=== PATIENT | female | born 1980 | race Two or more races ===

== ENCOUNTER 2025-03-06 09:07 | Outpatient (REF) | payer MEDICAID, SELFPAY ==
--- OUTSIDE RECORDS SUMMARY | 2025-03-06 09:36 | XMS_ITS | Clinical Summary ---
Author Organization [employer] Address [address] [place] [address] 7 [place] [address] Care Team Providers Care Medical Assistant Name Role Phone Manuela Pike BYRON Primary Care Provider [phone] Allergies Active Allergy Reactions Criticality Noted Date Comments Amoxicillin 02/09/2025 Morphine 02/09/2025 Penicillins 02/09/2025 Medications * This document contains information received from the source organization and may not represent a complete record from that organization. lamoTRIgine (LaMICtal) 100 MG tabletIndications :Bipolar 2 disorder (CMS/HCC) (HCC) Take 1 tablet (100 mg) by mouth Once per day. 30 tablet 02/10/20 25 Active lamoTRIgine (LaMICtal) 25 MG tabletIndications :Bipolar 2 disorder (CMS/HCC) (HCC) Take 1 tablet (25 mg) by mouth Once per day. 30 tablet 02/10/20 25 Active lamoTRIgine (LaMICtal) 150 MG tabletIndications :Bipolar 2 disorder (CMS/HCC) (HCC) Take 1 tablet (150 mg) by mouth at bedtime. 30 tablet 02/10/20 25 026 Active cloNIDine (Catapres) 0.1 MG tabletIndications :Bipolar 2 disorder (CMS/HCC) (HCC) Take 1 tablet (0.1 mg) by mouth at bedtime. 30 tablet 02/10/20 25 Active gabapentin (Neurontin) 100 MG capsuleIndication s:Bipolar 2 disorder (CMS/HCC) (HCC) One to two capsules by mouth at bed time 60 capsule 02/10/20 25 Active amphetamine-dextr oamphetamine XR (Adderall XR) 10 MG 24 hr capsuleIndication s:Attention deficit hyperactivity disorder (ADHD), unspecified ADHD type Take 1 capsule (10 mg) by mouth Once per day. Do not crush or chew. 30 capsule 02/10/20 Active naproxen (Naprosyn) 500 MG tablet Take 500 mg by mouth every 12 (twelve) hours if needed. 07/20/19 Active cloNIDine (Catapres) 0.1 MG tablet Take 0.1 mg by mouth at bedtime. 12/04/19 025 Discontinued(R eorder (will not trigger notification to Pharmacy)) gabapentin (Neurontin) 100 MG capsule TAKE 1 TO 2 CAPSULES BY MOUTH AT BEDTIME 12/02/19 Discontinued(R eorder (will not trigger notification to Pharmacy)) lamoTRIgine (LaMICtal) 100 MG tablet TAKE 1 TABLET BY MOUTH TWICE A DAY WITH 25 MG TABLETS 12/02/19 Discontinued(R eorder (will not trigger notification to Pharmacy)) lamoTRIgine (LaMICtal) 25 MG tablet TAKE 1 TABLET BY MOUTH EVERY MORNING & TAKE 2 TABLETS EVERY EVENING DIRECTED 12/02/19 Discontinued(R eorder (will not trigger notification to Pharmacy)) erythromycin (Romycin) 5 MG/GM ophthalmic ointmentIndicatio ns:Conjunctivitis of right eye, unspecified conjunctivitis type Apply to right eye 4 times daily for 7 days. Apply Amount per Dose: 0.5 inch (~1 cm) per dose. 3.5 g 02/10/20 atomoxetine (Strattera) 60 MG capsule Take 60 mg by mouth in the morning. 09/19/19 025 Discontinued(S amado effects) lisdexamfetamine (Vyvanse) 30 MG capsule Take 30 mg by mouth in the morning. 05/22/20 Discontinued Active Problems Problem Noted Date Diagnosed Date Arthropathy of cervical spine 02/24/2025 Overview (02/24/2025): This was diagnosed in 2022 I think. When I don't do PT I experience neuropathy in both arms including tingling, reduced strength, trembling, numbness Assessment & Plan (02/24/2025 12:13 PM EDT): Plan to refer to PT Advised conservative treatment with heat ice, rest. She has ergonomically designed work station at home. She plans to attend acupuncture clinic Orders: Referral to Physical Therapy; Future Abdominal migraine 02/24/2025 Overview (02/24/2025): First notes age 6 not diagnosed till 2016. Best treated with acupuncture, diet etc Assessment & Plan (02/24/2025 12:13 PM EDT): Stable at this time Pt does suffer from chronic constipation regulated with miralax. Advised pt if she is not having daily BM she can increase to miralax BID she declines colace rx Neuropathy 02/24/2025 Overview (02/24/2025): Noticed in 2020, diagnosed as result of arthritis in 2021 by neurologist in [place] Severe major depression with out psychotic features (CMS/FORMERLY [facility]) 02/17/2025 Assessment & Plan (02/18/2025 4:53 PM EDT): During IBH Consult Kayla presenting with depressed mood, Tearful, crying spells , hopelessness, irritable mood, loss of interests/pleasure , sense of isolation/loneliness , isolating, changes in sleep difficulty falling asleep and difficulty staying asleep , psychomotor retardation, fatigue/loss of energy, inappropriate/excessive guilt , difficulty concentrating, indecisiveness and Abnormally elevated mood, Decreased need for sleep, Excessive goal directed activity, and Changes in self-image; for a period of 18+ mo, for most or all symptoms in the context of untreated chronic mental health condition. Pt carries a diagnosis of Bipolar disorder per her medical chart and presented with the sxs described above that reassures patient struggles with said mental health challenges. Kayla possess the insight and is able to identify triggers and coping strategies that currently work for her. She receives positive support from her community and is able and willing to reach out when feeling unsafe. Pt will be referred for medication management (Danica) and OP therapy services. Elevated blood pressure reading 02/09/2025 Assessment & Plan (02/09/2025 2:47 PM EDT): Patient reports blood pressure is high due to her appointment today, she reports she is a little nervous, I advised low-sodium diet and follow-up with PCP Vulvar cyst 01/31/2012 Attention deficit hyperactivity disorder (ADHD) 09/12/2010 Assessment & Plan (02/24/2025 12:13 PM EDT): Continue on adderall, no side effects at this time, VSS Assessment & Plan (02/09/2025 2:47 PM EDT): I will do month of refill, referral to N done today Bipolar II disorder ([facility]) 08/12/2010 Assessment & Plan (02/18/2025 4:53 PM EDT): During IBH Consult Kayla presenting with depressed mood, Tearful, crying spells , hopelessness, irritable mood, loss of interests/pleasure , sense of isolation/loneliness , isolating, changes in sleep difficulty falling asleep and difficulty staying asleep , psychomotor retardation, fatigue/loss of energy, inappropriate/excessive guilt , difficulty concentrating, indecisiveness and Abnormally elevated mood, Decreased need for sleep, Excessive goal directed activity, and Changes in self-image; for a period of 18+ mo, for most or all symptoms in the context of untreated chronic mental health condition. Pt carries a diagnosis of Bipolar disorder per her medical chart and presented with the sxs described above that reassures patient struggles with said mental health challenges. Kayla possess the insight and is able to identify triggers and coping strategies that currently work for her. She receives positive support from her community and is able and willing to reach out when feeling unsafe. Pt will be referred for medication management (Danica) and OP therapy services. Assessment & Plan (02/09/2025 2:47 PM EDT): I will do month of refill, referral to N done today Dyslexia 08/12/2010 Irritable bowel syndrome, unspecified 08/12/2010 Lactose intolerance 08/12/2010 Resolved Problems Problem Noted Date Diagnosed Date Resolved Date Conjunctivitis 02/09/2025 02/24/2025 Encounters * This document contains information received from the source organization and may not represent a complete record from that organization. Date Type Department Care Team Description 03/06/2025 Travel 02/24/2025 10:30 AM EDT Office Visit [facility] [address] [place] [address] Manuela Pike CNP Encounter for physical examination (Primary Dx); Bipolar 2 disorder (CMS/HCC); Attention deficit hyperactivity disorder (ADHD), unspecified ADHD type; Encounter for screening mammogram for breast cancer; Arthropathy of cervical spine; Abdominal migraine, not intractable; Bilateral carpal tunnel syndrome; Cervical radiculopathy; Accommodative insufficiency; Convergence insufficiency 02/24/[address] [address] Manuela Pike CNP Appointment 02/24/2025 Travel 02/23/2025 Travel 02/17/2025 Patient Outreach [address] [address] Isaiah Richey MD Pre-visit Planning (SDOH screening negative and Tobacco screening negative) 02/13/2025 Travel 02/09/2025 2:00 PM EDT Office Visit [facility] [address] [place] [id number] Rere Pacheco MD Elevated blood pressure reading (Primary Dx); Bipolar 2 disorder (CMS/HCC); Attention deficit hyperactivity disorder (ADHD), unspecified ADHD type; Conjunctivitis of right eye, unspecified conjunctivitis type 02/09/2025 Travel 02/04/2025 Telephone [facility] [address] [place] [address] Silvana Bird MA chart prep from Last 3 Months Social History Tobacco Use Types Packs/Day Years Used Date Smoking Tobacco: Never Assessed Depression Answer Date Recorded Patient Health Questionnaire-9 Score 14 02/18/2025 Patient Health Questionnaire-9 Score 14 02/18/2025 Last PHQ-9: Questionnaire Data Not on file 0 02/18/2025 Housing Stability Answer Date Recorded What is your housing situation today? I have pal sing 02/17/[address] you li ve. Do you have problems with any of the following? None of the above 02/17/2025 Food Insecurity Answer Date Recorded Within the past 12 months, y ou worried that your food would run out before you got money to buy more: Never True 02/17/2025 Within the past 12 months,th e food you bought just didn't last and you didn't have enough money to get more: Never True Transportation Answer Date Recorded In the past 12 months, has l ack of transportation kept you from medical appts, meetings, work or from getting things needed for daily living? No 02/17/2025 Utilities Answer Date Recorded In the past 12 months, has t he electric, gas, oil or water company threatened to shut off services in your home? No 02/17/2025 Depression Answer Date Recorded Patient Health Questionnaire-2 Score 6 02/18/2025 Internet Access Answer Date Recorded Internet Access Q1 Yes 02/17/2025 Internet Access Q2 Not on file 02/17/2025 Comments Unknown Sex and Gender Information Value Date Recorded Sex Assigned at Female 08/19/2024 2:47 PM EDT Legal Sex Female 2:46 PM EDT Gender Identity Female 08/19/2024 2:47 PM EDT Sexual Orientation Choose not to disclose 2024 2:47 PM EDT Last Filed Vital Signs Vital Sign Reading Time Taken Comments Blood Pressure 132/88 02/24/2025 10:30 AM EDT Pulse 70 02/24/2025 10:30 AM EDT Temperature 36.3 C (97.3 F) 02/24/2025 10:30 AM EDT Respiratory Rate 16 02/24/2025 10:30 AM EDT Oxygen Saturation 100% 02/24/2025 10:30 AM EDT Inhaled Oxygen Concentration - - Weight 73 kg (161 lb) 02/24/2025 10:30 AM EDT Height 176.5 cm (5' 9.5 ) 02/24/2025 10:30 AM ED T Body Mass Index 23.43 02/24/2025 10:30 AM EDT Plan of Treatment Upcoming Encounters Date Type Department Care Team (Late st Contact Info) Description 04/24/2025 9:00 AM EST Office Visit [facility] [address] [place] [address] Manuela Pike, BYRON [address] [place] [address] Health Maintenance Due Date Last Done Comments HIV Screening 1982 Tobacco Screening 1994 Family Planning (PISQ) 1997 HPV Vaccines (1 - 3-dose series) 1997 Hepatitis C Screening 2000 Hepatitis B Vaccines (1 of 3 - 19+ 3-dose series) 2001 Pap Smear 11/06/2003 Cervical Cancer Screening 2012 HPV/Cotest 2012 DTaP/Tdap/Td Vaccines (2 - T d or Tdap) 09/18/2022 09/18/2012 Mammogram 2022 COVID-19 Vaccine ( - 2023-2 5 season) 2025 Influenza Vaccine (#1) 2025 04/17/2011 Depression Monitoring 08/18/2025 02/18/2025 , 02/18/2025 SDOH Screening 02/17/2026 02/17/2025 Disability Screening 02/23/2026 02/23/2025 Alcohol/Substance Use Screening 02/24/2026 02/24/2025 Zoster Vaccines (1 of 2) 2032 RSV Patients and Patients Aged 60 years or older (1 - 1-dose 75+ series) 2057 HIB Vaccines Aged Out No longer eligi ble based on patient's age to complete this topic Hepatitis A Vaccines Aged Out No long er eligible based on patient's age to complete this topic IPV Vaccines Aged Out No longer eligi ble based on patient's age to complete this topic Meningococcal B Vaccine Aged Out No l onger eligible based on patient's age to complete this topic Meningococcal Vaccine Aged Out No dedra porfirio eligible based on patient's age to complete this topic Pneumococcal Vaccine: Pediatrics (0 to 5 Years) and At-Risk Patients (6 to 49) Years Aged Out No longer eligible b ased on patient's age to complete this topic RSV under 20 months Aged Out No longe r eligible based on patient's age to complete this topic Rotavirus Vaccines Aged Out No longer eligible based on patient's age to complete this topic Insurance [facility] MEDICAID STAND ADULT Care Teams Medical Assistant Relationship Specialty Start Date End Date Manuela Pike CNP [address] [place] [id number] PCP - General Family Medicine 02/24/25
--- OUTSIDE RECORDS SUMMARY | 2025-03-06 09:36 | XMS_ITS | Encounter Summary ---
Author Organization [employer] Address [address] [facility] [facility] [address] [place] [address] Care Team Providers Care Mingle Operator Name Role Phone Manuela Pike BYRON Primary Care Provider [phone] Encounter Details Date Type Department Care Team (Latest Contact Info) Description 03/06/2025 Travel Social History Tobacco Use Types Packs/Day Years Used Date Smoking Tobacco: Never Assessed Depression Answer Date Recorded Patient Health Questionnaire-9 Score 14 02/18/2025 Patient Health Questionnaire-9 Score 14 02/18/2025 Last PHQ-9: Questionnaire Data Not on file 0 02/18/2025 Housing Stability Answer Date Recorded What is your housing situation today? I have pal lovell 02/17/[address] you li [...] not to disclose 2024 2:47 PM EDT documented as of this encounter Plan of Treatment Upcoming Encounters Date Type Department Care Team (Late st Contact Info) Description 04/24/2025 9:00 AM EST Office Visit [facility] [address] [place] [address] Manuela Pike CNP [address] [place] [address] documented as of this encounter Visit Diagnoses Not on filedocumented in this encounter Additional Health Concerns Assessment Noted Time PHQ-9 Depression Total Score: 14 025 9:57 AM EDT documented as of this encounter Care Teams Mingle Operator Relationship Specialty Start Date End Date Manuela Pike CNP [address] [place] [address] PCP - General Family Medicine 02/24/25 documented as of this encounter
--- OUTSIDE RECORDS SUMMARY | 2025-03-06 09:36 | XMS_ITS | Clinical Summary ---
Author Organization [facility] Address [address] [place] [address] Care Team Providers Care Thermometer Production Worker Name Role Phone Unavailable Primary Care Provider Unavailabl e Source Comments PLEASE NOTE, if this patient is a minor, it may be UNLAWFUL to discuss sensitive information that is contained in these records (such as FAMILY PLANNING, MENTAL HEALTH or SUBSTANCE ABUSE) with the minor patient's parent or other person without the patient's specific authorization.[facility] Social History Tobacco Use Types Packs/Day Years Used Date Smoking Tobacco: Never Assessed Comments Unknown Sex and Gender Information Value Date Recorded Sex Assigned at Female 02/20/2025 9:19 AM PDT Legal Sex Female 9:19 AM PDT Gender Identity Female 02/20/2025 9:19 AM PDT Sexual Orientation Not on file Plan of Treatment Upcoming Encounters Date Type Department Care Team (Late st Contact Info) Description 03/24/2025 11:30 AM EDT Behavioral Health Visit [facility] [address] [place] [address] Ashly Linn APRN [address] [place] [address] Health Maintenance Due Date Last Done Comments Anxiety Screening 1982 Diabetes Screening 1982 HPV Screening 1982 Hepatitis C Screening 1982 Lipid Screening 1982 Pap + HPV 1982 Tobacco Screening 1982 HIV Screening 1997 Relationship Safety Screening/Counseling 1997 Hypertension Screening (#1) 2000 Imm-DTaP/Tdap/Td (1 - Tdap) 2001 Imm-Hepatitis B (1 of 3 - 19+ 3-dose series) 2 Cervical Cancer Screening 11/06/2003 Pap Smear 11/06/2003 Imm-HPV (1 - 3-dose SCDM series) 2009 Breast Cancer Screening (Mammogram) 2022 Alcohol and Drug Screen 06/04/2024 Depression Annual Screen 06/04/2024 [id number] (2023- season) 2025 Imm-Influenza (#1) 2025 Cervical Ablation/Cold-Knife Conization Discontinued Cervical Cryotherapy Discontinued Colposcopy Discontinued Endometrial Biopsy Discontinued Excision/Leep Discontinued HPV Genotyping Discontinued Vaginal Pap Discontinued Vulvoscopy Discontinued Insurance [facility]
[2025-03-06 14:13] LABS: MANUAL DIFF FLAG NO
[2025-03-06 14:30] LABS: Hematocrit 39.0 % (37.0-47.0); Hemoglobin 12.8 g/dl (12.0-16.0); Imm Gran Abs Auto 0.02 X10*3/uL (0.00-0.03); Imm Gran Pct Auto 0.3 % (0.0-0.4); Lymphocytes Absolute Auto 1.8 X10*3/uL (1.2-4.9); Mean Corpuscular HGB Conc 32.8 g/dl (31.0-35.0); Mean Corpuscular Hemoglobin 31.1 pg (27.0-33.0); Mean Corpuscular Volume 94.9 fL (80.0-98.0); NRBC Abs Auto 0.000 X10*3/uL (0.0-0.012); NRBC Pct Auto 0.0 /100WBC (0.0-0.2); Platelet Count 299 X10*3/uL (160-400); Red Blood Count 4.11 X10*6/uL (4.20-5.50); White Blood Count 5.7 X10*3/uL (4.8-10.8)
[2025-03-06 15:01] LABS: Alanine Aminotransferase 13 U/L (0-31); Albumin Level 4.3 g/dL (3.5-5.0); Alkaline Phosphatase 62 U/L (39-117); Anion Gap 10 (12-20); Aspartate Amino Transferase 25 U/L (5-31); Blood Urea Nitrogen 14 mg/dL (9-16); Calcium 9.2 mg/dL (8.4-10.2); Carbon Dioxide 27 mmol/L (22-29); Chloride 102 mmol/L (96-108); Cholesterol 206 mg/dL (<200); Estimated Glomerular Filt Rate > 60; HDL Cholesterol 55 mg/dL (>40); Potassium 4.6 mmol/L (3.3-5.1); Sodium 134 mmol/L (135-145); Total Protein 7.1 g/dL (6.5-8.0); Triglycerides 65 mg/dL (<150)
[2025-03-07 04:23] LABS: HBS Num1 134.84 mIU/mL (0-7.99); HBc Num1 0.09 S/CO (0.00-0.79); HBsAGNum1 0.30 S/CO (0.00-0.99); HIV Num 1 0.06 S/CO (0.00-0.99); Hepatitis B Surface Antigen Negative (Negative); ~HepC Num1 0.08 S/CO (0.00-0.79); ~Hepatitis B Surface Antibody REACTIVE (Nonreactive); ~Hepatitis C Antibody Nonreactive (Nonreactive)
== END 2025-03-06 09:08 | disposition home or self-care (01) ==
LOC: HO.CHCLDS 09:07
DX: Z00.00 Encounter for general adult medical examination without abnormal findings (principal); Z11.59 Encounter for screening for other viral diseases; Z11.4 Encounter for screening for human immunodeficiency virus [HIV]
CPT/HCPCS: 36415; 80053; 80061; 83036; 84443; 85025; 86704; 86706; 86803; 87340; 87389

== ENCOUNTER 2025-04-02 08:57 | Outpatient (REF) | payer MEDICAID, SELFPAY ==
--- NOTE | 2025-04-02 | EMG_ITS ---
Chief complaint:?G56.03 Carpal tunnel syndrome, bilateral Reason for referral: Numbness, tingling and weakness Referred by:Carmel Pike Procedure done: bilateral upper extremities NCS/EMG Bilateral median and ulnar motor studies were performed. Bilateral median and ulnar mixed sensory study, bilateral radial sensory and bilateral median and lateral antecubital brachial sensory studies were performed and EMG needle examination was performed. Findings: No abnormalities were noted. Impression: This is an unremarkable study with no evidence of median or ulnar neuropathy or a proximal lesion. [place] [id number] 2 extremities MTDD
--- OUTSIDE RECORDS SUMMARY | 2025-04-02 09:59 | XMS_ITS | Clinical Summary ---
Author Organization [facility] Address [address] [place] [address] Care Team Providers Care Gear Machine Operator Name Role Phone Unavailable Primary Care Provider Unavailabl e Source Comments PLEASE NOTE, if this patient is a minor, it may be UNLAWFUL to discuss sensitive information that is contained in these records (such as FAMILY PLANNING, MENTAL HEALTH or SUBSTANCE ABUSE) with the minor patient's parent or other person without the patient's specific authorization.[facility] Allergies Active Allergy Reactions Criticality Noted Date Comments Morphine Anxiety,Itching,Othe r (See Comments),Rash Low 08/12/2010 Itch, nausea Penicillins Hives Medium 10/12/2011 Medications dextroamphetami ne-amphetamine (ADDERALL) 5 mg tablet Take 7.5 mg by mouth. 2 Active dextroamphetami ne-amphetamine (ADDERALL XR) 10 mg 24 hr capsule Take 10 mg by mouth daily. 5 Active cloNIDine (CATAPRES) 0.1 mg tablet Take 0.1 mg by mouth nightly at bedtime. Active gabapentin (NEURONTIN) 100 mg capsule Take 100 mg by mouth nightly at bedtime. 3 Active lamoTRIgine (LAMICTAL) 150 mg tablet Take 150 mg by mouth 2 (two) times daily. 5 02/10/20 26 Active naproxen (NAPROSYN) 500 mg tablet Take 500 mg by mouth 2 (two) times daily. 3 Active venlafaxine XR (EFFEXOR XR) 37.5 mg 24 hr capsule Take 1 Capsule by mouth once daily with breakfast for 16 days. 16 Capsule 5 04/09/20 25 Active Active Problems Problem Noted Date Diagnosed Date Arthritis 03/24/2025 Overview (03/24/2025): C5-C6 diagnosed back in 2020 Neuropathic pain 03/24/2025 Overview (03/24/2025): tingling, numbness, weakened operator receptionist and trembling in both hands/arms from stenosis in neck Abdominal migraine 02/24/2025 Overview (03/24/2025): First notes age 6 not diagnosed till 2016. Best treated with acupuncture, diet etc Arthropathy of cervical spine 02/24/2025 Overview (03/24/2025): This was diagnosed in 2022 I think. 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 She reports the medication is making a difference but experiences evening crash and exhaustion. Previous trials of Vyvanse caused amplified anxiety and Strattera caused 40-pound weight gain. She inquired about viloxazine but expressed anxiety about trying another SNRI after Strattera experience. Plan: - Continue current Adderall regimen (10 mg XR morning, 7.5 mg short-release afternoon) Bipolar II disorder 08/12/2010 Assessment & Plan (03/26/2025 5:20 PM EDT): Bipolar type 2 disorder with depression Assessment: Patient has bipolar type 2 disorder diagnosed in 2002, currently experiencing worsening seasonal depression with suicidal ideation despite being on maximum lamotrigine dose of 300 mg daily (150 mg twice daily, increased from 275 mg in February). She reports exhaustion by end of day, not getting out of bed on Saturdays, and concentration difficulties. Previous trial of Effexor in 2007 caused hypomanic episode, but now that she is on lamotrigine mood stabilizer, venlafaxine may be worth retrying as it has better evidence for supporting depressive phase of bipolar without causing diana. Abilify was considered for augmentation but ruled out due to anxiety and concurrent Adderall use making it too activating. Plan: - Start venlafaxine 37.5 mg daily for 2 weeks, then increase to therapeutic dose of 75 mg - Patient expressed willingness to try but noted sensitivity to side effects and preference for slow titration - Continue lamotrigine 150 mg twice daily (current maximum dose is appropriate) - Follow-up in 2 weeks on April 07 at 10:30 AM to assess medication tolerance and adjust as needed Dyslexia 08/12/2010 Irritable bowel syndrome, unspecified 08/12/2010 Lactose intolerance 08/12/2010 History of lumbar spinal fusion 12/15/2008 Overview (03/24/2025): burst wedge fracture of L1 fused to above and below. Encounters Date Type Department Care Team Description 03/24/2025 11:30 AM EDT Behavioral Health Visit [facility] [address] [place] [address] Ashly Linn APRN from Last 3 Months Immunizations Immunization Administration Dates Next Due Flu, Cell Culture based, Pre servative Free, 6m+, Flucelvax 03/28/2018 Flu, Preservative Free 04/17/2021,05/02/2017 Hep B, Unspecified 1982 INFLUENZA, SEASONAL, INJECTABLE, PRESERVATIVE FR EE 03/06/2025 MMR (MMR II/Priorix) 11/06/1983 [facility] State Funded Flu Vaccine 04/17/2011 TDAP 09/18/2012 Social History Tobacco Use Types Packs/Day Years Used Date Smoking Tobacco: Never Assessed Comments Unknown Sex and Gender Information Value Date Recorded Sex Assigned at Female 02/20/2025 9:19 AM PDT Legal Sex Female 9:19 AM PDT Gender Identity Female 02/20/2025 9:19 AM PDT Sexual Orientation Not on file Plan of Treatment Upcoming Encounters Date Type Department Care Team (Дмитрий causey Contact Info) Description 04/07/2025 10:30 AM EST Behavioral Health Visit [facility] [address] [place] [id number] Ashly Linn, [place] [address] [facility] [place] [address] Health Maintenance Due Date Last Done Comments Anxiety Screening 1982 Depression Monitoring 1982 HPV Screening (self-collect) 1982 HPV Screening 1982 Pap + HPV 1982 Tobacco Screening 1982 Imm-Hepatitis B (2 of 3 - 3- dose series) 1982 1982 Relationship Safety Screening/Counseling 1997 Hypertension Screening (#1) 2000 Cervical Cancer Screening 11/06/2003 Pap Smear 11/06/2003 Imm-HPV (1 - 3-dose SCDM series) 2009 Imm-DTaP/Tdap/Td (2 - Td or Tdap) 09/18/2022 013 Breast Cancer Screening (Mammogram) 2022 Alcohol and Drug Screen 06/04/2024 Diabetes Screening 03/06/2028 03/06/2025, 1 , 03/06/2025 Lipid Screening 03/06/2030 03/06/2025 HIV Screening Completed 03/06/2025, 03/06/2025 Hepatitis C Screening Completed 03/06/2025 [id number] Completed 03/06/2025, 04/05, 06/03/2020 Imm-Influenza Completed 03/06/2025, 04/04, 03/28/2018, Additional history exists Cervical Ablation/Cold-Knife Conization Discontinued Cervical Cryotherapy Discontinued Colposcopy Discontinued Excision/Leep Discontinued HPV Genotyping Discontinued Vaginal Pap Discontinued Vulvoscopy Discontinued Insurance [facility] [employer]
--- OUTSIDE RECORDS SUMMARY | 2025-04-02 09:59 | XMS_ITS | Clinical Summary ---
Author Organization [facility] Address [address] [facility] 7 [place] [address] Care Team Providers Care Driver'S Education Instructor Name Role Phone Manuela Pike BYRON Primary Care Provider [phone] Allergies Active Allergy Reactions Criticality Noted Date Comments Amoxicillin 02/09/2025 Morphine 02/09/2025 Penicillins 02/09/2025 Medications * This document contains information received from the source organization and may not represent a complete record from that organization. lamoTRIgine (LaMICtal) 100 MG tabletIndications: Bipolar 2 disorder (CMS/HCC) (HCC) Take 1 tablet (100 mg) by mouth Once per day. 30 tablet 5 Active lamoTRIgine (LaMICtal) 25 MG tabletIndications: Bipolar 2 disorder (CMS/HCC) (HCC) Take 1 tablet (25 mg) by mouth Once per day. 30 tablet 5 Active lamoTRIgine (LaMICtal) 150 MG tabletIndications: Bipolar 2 disorder (CMS/HCC) (HCC) Take 1 tablet (150 mg) by mouth at bedtime. 30 tablet 5 02/10/20 26 Active cloNIDine (Catapres) 0.1 MG tabletIndications: Bipolar 2 disorder (CMS/HCC) (HCC) Take 1 tablet (0.1 mg) by mouth at bedtime. 30 tablet 5 Active gabapentin (Neurontin) 100 MG capsuleIndications :Bipolar 2 disorder (CMS/HCC) (HCC) One to two capsules by mouth at bed time 60 capsule 5 Active amphetamine-dextro amphetamine XR (Adderall XR) 10 MG 24 hr capsuleIndications :Attention deficit hyperactivity disorder (ADHD), unspecified ADHD type Take 1 capsule (10 mg) by mouth Once per day. Do not crush or chew. 30 capsule 5 Active naproxen (Naprosyn) 500 MG tablet Take 500 mg by mouth every 12 (twelve) hours if needed. 3 Active ferrous gluconate (Fergon) 324 (38 Fe) MG tabletIndications: Anemia, unspecified type Take 1 tablet (324 mg) by mouth with breakfast. 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) 02/17/2025 Assessment & Plan (02/18/2025 4:53 PM [...] will do month of refill, referral to [facility] done today Bipolar II disorder ([facility] 08/12/2010 Assessment & Plan (02/18/2025 4:53 PM [...] will do month of refill, referral to [facility] done today Dyslexia 08/12/2010 Irritable bowel syndrome, unspecified 08/12/2010 Lactose intolerance 08/12/2010 Resolved Problems Problem Noted Date Diagnosed Date Resolved Date Conjunctivitis 02/09/2025 02/24/2025 Encounters * This document contains information received from the source organization and may not represent a complete record from that organization. Date Type Department Care Team Description 03/06/2025 9:30 AM EDT Clinical Support [facility] [address] [place] [phone] Susana Aguirre RN Encounter for immunization; Encounter for vaccination 03/06/2025 Travel 02/24/2025 10:30 AM EDT Office Visit [facility] [address] [place] [address] Manuela Pike CNP Encounter for physical examination (Primary Dx); Bipolar 2 disorder (CMS/HCC); Attention deficit hyperactivity disorder (ADHD), unspecified ADHD type; Encounter for screening mammogram for breast cancer; Arthropathy of cervical spine; Abdominal migraine, not intractable; Bilateral carpal tunnel syndrome; Cervical radiculopathy; Accommodative insufficiency; Convergence insufficiency 02/24/2025 Telephone [facility] [address] [place] [phone] Manuela Pike CNP Appointment 02/24/2025 Travel 02/23/2025 Travel 02/17/2025 Patient Outreach [facility] [address] [place] [address] Isaiah Richey MD Pre-visit Planning (SDOH screening negative and Tobacco screening negative) 02/13/2025 Travel 02/09/2025 2:00 PM EDT Office Visit [facility] [address] [place] [address] Rere Pacheco MD Elevated blood pressure reading (Primary Dx); Bipolar 2 disorder (CMS/HCC); Attention deficit hyperactivity disorder (ADHD), unspecified ADHD type; Conjunctivitis of right eye, unspecified conjunctivitis type 02/09/2025 Travel 02/04/2025 Telephone [facility] [address] [place] [address] Silvana Bird MA chart prep from Last 3 Months Immunizations Immunization Administration Dates Next Due Influenza, seasonal, injectable, preservative fr ee 03/06/2025 Pfizer Covid-19 Vaccine 12+ 03/06/2025 Social History Tobacco Use Types Packs/Day Years [...] Description 04/24/2025 9:00 AM EST Office Visit [facility] [address] [place] [address] [place], [facility] [address] [place] [address] Health Maintenance Due Date Last Done Comments Tobacco Screening 1994 Family Planning (PISQ) 1997 HPV Vaccines (1 - 3-dose series) 1997 Hepatitis B Vaccines (1 of 3 - 19+ 3-dose series) 2001 Pap Smear 11/06/2003 Cervical Cancer Screening 2012 HPV/Cotest 2012 DTaP/Tdap/Td Vaccines (2 - T d or Tdap) 09/18/2022 09/18/2012 Mammogram 2022 Depression Monitoring 08/18/2025 02/18/2025 , 02/18/2025 SDOH Screening 02/17/2026 02/17/2025 Disability Screening 02/23/2026 02/23/2025 Alcohol/Substance Use Screening 02/24/2026 02/24/2025 Zoster Vaccines (1 of 2) 2032 RSV Patients and Patients Aged 60 years or older (1 - 1-dose 75+ series) 2057 COVID-19 Vaccine Completed 03/06/2025 HIV Screening Completed 03/06/2025 Hepatitis C Screening Completed 03/06/2025 Influenza Vaccine Completed 03/06/2025, 04/17/2011 HIB Vaccines Aged Out No longer eligi [...] on patient's age to complete this topic Procedures Procedure Name Priority Date/Time Associated Diagnosis Comments HEMOGLOBIN A1C Routine 03/06/2025 9:11 AM EDT Encounter for physical examination LIPID PANEL, STANDARD Routine 03/06/2025 9:11 AM EDT Encounter for physical examination TSH W/REFLEX TO FT4 Routine 03/06/2025 9 :11 AM EDT Encounter for physical examination COMPREHENSIVE METABOLIC PANEL Routine 03/06/2025 9:11 AM EDT Encounter for physical examination CBC WITH AUTO DIFFERENTIAL Routine 03/06/2025 9:11 AM EDT Encounter for physical examination HEPATITIS B SURFACE ANTIGEN, EIA Routine 03/06/2025 9:11 AM EDT Encounter for physical examination HEPATITIS B CORE AB TOTAL Routine 03/06/2025 9:11 AM EDT Encounter for physical examination HEPATITIS B SURFACE ANTIBODY, QUALITATIVE Routine 03/06/2025 9:11 AM EDT Encounter for physical examination HEPATITIS C AB W/REFL TO HCV RNA, QN, PCR Routine 03/06/2025 9:11 AM EDT Encounter for physical examination HIV 1/2 ANTIGEN/ANTIBODY, FOURTH GENERATION W/RFL Routine 03/06/2025 9:11 AM EDT Encounter for physical examination from Last 3 Months Results * TSH W/Reflex to FT4 (03/06/2025 9:11 AM EDT) TSH reflex Free T4 1.27 0.32 - 4.0 uIU/mL [facility] Blood Venous blood specimen / Unknown 03/06/2025 9:11 AM EDT 03/06/2025 2:14 PM EDT [facility] LAB BLOOD ORDERABLES Flores l Result [facility] [address] [place] [phone] * (ABNORMAL) CBC auto differential (03/06/2025 9:11 AM EDT) White Blood Count 5.7 4.8 - 10.8 X10*3/uL [facility] Red Blood Count 4.11(L) 4.20 - 5.50 X10*6/uL [facility] Hemoglobin 12.8 12.0 - 16.0 g/dl [facility] Hematocrit 39.0 37.0 - 47.0 % [facility] Mean Corpuscular Volume 94.9 80.0 - 98.0 fL [facility] Mean Corpuscular Hemoglobin 31.1 27.0 - 33.0 pg [facility] Mean Corpuscular HGB Conc 32.8 31.0 - 35.0 g/dl [facility] Red Cell Distribution Width 13.7 11.0 - 16.0 % [facility] Platelet Count 299 160 - 400 X10*3/uL [facility] Mean Platelet Volume 10.9 9.4 - 12.3 fL [facility] Neutrophils Percent Auto 59.5 45 - 73 % [facility] Imm Gran Pct Auto 0.3 0.0 - 0.4 % [facility] Lymphocytes Percent Auto 30.8 20 - 40 % [facility] Monocytes Percent Auto 8.5 2 - 11 % [facility] Eosinophils Percent Auto 0.7 0 - 4 % [facility] Basophils Percent Auto 0.2 0 - 2 % [facility] NRBC Pct Auto 0.0 0.0 - 0.2 /100WBC [facility] Neutrophils Absolute Auto 3.4 2.0 - 8.3 x10*3/uL [facility] Imm Gran Abs Auto 0.02 0.00 - 0.03 X10*3/uL [facility] Lymphocytes Absolute Auto 1.8 1.2 - 4.9 X10*3/uL [facility] Monocytes Absolute Auto 0.5 0.1 - 1.2 X10*3/uL [facility] Eosinophils Absolute Auto 0.0 0.0 - 0.4 X10*3/uL [facility] Basophils Absolute Auto 0.0 0.0 - 0.2 X10*3/uL [facility] NRBC Abs Auto 0.000 0.0 - 0.012 X10*3/uL [facility] Blood Venous blood specimen / Unknown 03/06/2025 9:11 AM EDT 03/06/2025 2:10 PM EDT Manuela Pike [facility] LAB BLOOD ORDERABLES Flores l Result [facility] [address] [place] [phone] * Hepatitis C Antibody with Reflex to HCV, RNA, Quantitative, Real-Time PCR (03/06/2025 9:11 AM EDT) Hepatitis C Antibody Nonreactive Nonreactive [facility] Comment:Antibodies to HCV no t detected; does not exclude early acuteHCV infection. Blood Venous blood specimen / Unknown 03/06/2025 9:11 AM EDT 03/06/2025 2:14 PM EDT [facility] LAB BLOOD ORDERABLES Flores l Result Performing Organization Address City/[facility]/ZIP Co de Phone Number [facility] [address] [place] [phone] * Hepatitis B surface antigen, EIA (03/06/2025 9:11 AM EDT) Hepatitis B Surface Ag Negative Negative [facility] Blood Venous blood specimen / Unknown 03/06/2025 9:11 AM EDT 03/06/2025 2:14 PM EDT [facility] LAB BLOOD ORDERABLES Flores l Result Performing Organization Address City/[facility]/ZIP Co de Phone Number [facility] [address] [place] [phone] * Hepatitis B Core Antibody, Total (03/06/2025 9:11 AM EDT) Hepatitis B Core Antibody Nonreactive Nonreactive [facility] Blood Venous blood specimen / Unknown 03/06/2025 9:11 AM EDT 03/06/2025 2:14 PM EDT [facility] LAB BLOOD ORDERABLES Flores l Result Performing Organization Address City/[facility]/[place] Co de Phone Number [facility] [address] [place] [phone] * HIV-1/2 Antigen and Antibodies, Fourth Generation, with Reflexes (03/06/2025 9:11 AM EDT) [facility] HIV AB/AG Nonreactive Nonreactive [facility] Comment:HIV-1 p24 Ag and/or HIV-1/HIV-2 Ab not detected.A test result that is nonreactive does not exclude thepossibility of exposure to or infection with HIV-1 and/orHIV-2. Nonreactive results in this assay for individualswith prior exposure to HIV-1 and/or HIV-2 may be due toantigen and antibody levels that are below the limit ofdetection of this assay.The Qubole HIV Ag/Ab Combo assay result andsupplemental assay results should be interpreted inconjunction with the patient's clinical presentation,history and other laboratory results. If the results areinconsistent with clinical evidence, additional testing issuggested to confirm the result. Blood Venous blood specimen / Unknown 03/06/2025 9:11 AM EDT 03/06/2025 2:14 PM EDT [facility] LAB BLOOD ORDERABLES Flores l Result Performing Organization Address City/[facility]/ZIP Co de Phone Number [facility] [address] [place] [address] [phone] * Hepatitis B Surface Antibody, Qualitative (03/06/2025 9:11 AM EDT) [facility] ~Hepatitis B Surface Antibody REACTIVE Nonreactive [facility] Comment:REACTIVE: > 11.99 mI U/mL Blood Venous blood specimen / Unknown 03/06/2025 9:11 AM EDT 03/06/2025 2:14 PM EDT [facility] LAB BLOOD ORDERABLES Flores l Result Performing Organization Address City/[facility]/ZIP Co de Phone Number [facility] [address] [place] [phone] * Hemoglobin A1c (03/06/2025 9:11 AM EDT) [facility] Hemoglobin A1c 5.2 <6.0 % [facility] Comment:Hemoglobin A1C Refer ence Range Adults: 4.8 - 6.0 % Non diabetic: < 6.0 % Goal: < 7.0 %Additional Action Suggested: > 8.0 %Note: Hemoglobin A1c results are invalid for patients with abnormal amounts of HbF. Blood transfusions may impact the HbA1c concentration in the patient sample. Estimated Average Glucose 103 mg/dL [facility] Comment:eAG = Estimated ave rage glucose which is %A1C expressed asaverage glucose, using the formula of the [id number] Glucose study (ADAG), Diabetes Care, Vol.31,#8,Jan. 2007 Blood Venous blood specimen / Unknown 03/06/2025 9:11 AM EDT 03/06/2025 2:10 PM EDT [facility] LAB BLOOD ORDERABLES Flores l Result [facility] [address] [place] [phone] * (ABNORMAL) Lipid Panel, Standard (03/06/2025 9:11 AM EDT) Triglycerides 65 <150 mg/dL [facility] Comment:Desirable Triglyceri de: less than 150 mg/dLBorderline High Triglyceride 150-199 mg/dLHigh Triglyceride: 200-499 mg/dLVery High Triglyceride: greater than or equal to 5OO mg/dL Cholesterol 206(H) <200 mg/dL [facility] Comment:Desirable Cholestero l: less than 200 mg/dLBorderline High Cholesterol: 200-239 mg/dLHigh Cholesterol: greater than 239 mg/dL LDL Cholesterol Calculated 138(H) <100 mg/dL [facility] Comment:Desirable LDL: less than 100 mg/dLNear Optimal/Above Optimal LDL: 110- 129 mg/dLBorderline High LDL: 130-159 mg/dLHigh LDL: 160-189 mg/dLVery High LDL: greater than or equal to 190 mg/dL HDL Cholesterol 55 >40 mg/dL [facility] Comment:Desirable HDL: great er than 40 mg/dL Note: This HDL assay may give artificially low results in patients with liver disease. Blood Venous blood specimen / Unknown 03/06/2025 9:11 AM EDT 03/06/2025 2:14 PM EDT Manuela Pike [facility] LAB BLOOD ORDERABLES Flores l Result [facility] [address] [place] [phone] * (ABNORMAL) Comprehensive Metabolic Panel (03/06/2025 9:11 AM EDT) Sodium 134(L) 135 - 145 mmol/L [facility] Potassium 4.6 3.3 - 5.1 mmol/L [facility] Chloride 102 96 - 108 mmol/L [facility] Carbon Dioxide 27 22 - 29 mmol/L [facility] Anion Gap 10(L) 12 - 20 [facility] Urea Nitrogen (BUN) 14 9 - 16 mg/dL [facility] Creatinine, Serum 0.97 0.5 - 1.4 mg/dL [facility] Estimated Glomerular Filt Rate >60 [facility] Comment:Chronic Kidney Disea se: Estimated GFR < 60 mL/min/1.32m8Ulscce Kidney Disease: Estimated GFR < 15 mL/min/1.73m2 Glucose 86 60 - 115 mg/dL [facility] Calcium 9.2 8.4 - 10.2 mg/dL [facility] Bilirubin, Total 0.7 0.0 - 1.0 mg/dL [facility] Aspartate Amino Transferase 25 5 - 31 U/L [facility] Alanine Aminotransferase 13 0 - 31 U/L [facility] Total Protein 7.1 6.5 - 8.0 g/dL [facility] Albumin Level 4.3 3.5 - 5.0 g/dL [facility] Alkaline Phosphatase 62 39 - 117 U/L [facility] Blood Venous blood specimen / Unknown 03/06/2025 9:11 AM EDT 03/06/2025 2:14 PM EDT Manuela Pike [facility] LAB BLOOD ORDERABLES Flores l Result [facility] [address] [place] [phone] from Last 3 Months [facility] STAND ADULT Care Teams Driver'S Education Instructor Relationship Specialty Start Date End Date Manuela Pike CNP [address] [place] [address] PCP - General Family Medicine 02/24/25
== END 2025-04-02 08:58 | disposition home or self-care (01) ==
LOC: HO.NEURO 08:57
DX: G56.03 Carpal tunnel syndrome, bilateral upper limbs (principal); R20.2 Paresthesia of skin; R20.0 Anesthesia of skin
CPT/HCPCS: 95886; 95913

== ENCOUNTER → 2025-04-02 09:10 | Outpatient (BNV) | payer MEDICAID, SELFPAY | PROVIDERS: Visit Provider Psychiatry & Neurology Neurology | DX: G56.03 Carpal tunnel syndrome, bilateral upper limbs (principal) | CPT/HCPCS: 95886; 95913 ==

== ENCOUNTER 2025-04-23 08:06 | Outpatient (REF) | payer MEDICAID, SELFPAY ==
--- NOTE | ~2025-04-23 | MM_ITS ---
EXAMINATION: MM SCREENING DIGITAL BREAST TOMOSYNTHESIS, BILATERAL CLINICAL INFORMATION: Screening. Asymptomatic. COMPARISON: None. This is a baseline study. TECHNIQUE: Digital breast tomosynthesis is performed in mediolateral oblique and craniocaudal views along with computer-aided detection (CAD). Synthesized 2D images are generated from the tomosynthesis. FINDINGS: BREAST COMPOSITION: There are scattered areas of fibroglandular density. BILATERAL BREASTS: No significant masses, suspicious calcifications or other abnormalities are seen in either breast. MM/MM tomosynthesis screening BI IMPRESSION: BILATERAL BREASTS: Negative, no mammographic evidence of malignancy. Normal interval follow-up is recommended in 12 months. ASSESSMENT: BI-RADS: Category 1: Negative RECOMMENDATION: Routine annual mammography screening. FOLLOW-UP: 1 year F/U This examination should not preclude the clinical evaluation of a suspicious palpable abnormality. This patient's information was entered into a reminder system with a target due date for their next mammogram. Electronically signed by: Aura Kapoor MD 04/26/2025 05:44 PM EST
== END 2025-04-23 08:07 | disposition home or self-care (01) ==
LOC: HO.MAMMO 08:06
DX: Z12.31 Encounter for screening mammogram for malignant neoplasm of breast (principal)
CPT/HCPCS: 77063; 77067

== ENCOUNTER → 2025-04-23 08:15 | Outpatient (BNV) | payer MEDICAID, SELFPAY | PROVIDERS: Visit Provider Radiology Body Imaging | DX: Z12.31 Encounter for screening mammogram for malignant neoplasm of breast (principal) | CPT/HCPCS: 77063; 77067 ==